=== PATIENT | female | born 1970 | race Caucasian/White ===

== ENCOUNTER 2016-05-19 09:32 | Emergency (ER) | payer SELFPAY ==
[~2016-05-19] VITALS: Ht 152.4 cm; Wt 46.1 kg
[~2016-05-19 09:32] MED LIST: DICL75 PO; ROBA750T3 PO
[2016-05-19 09:36] VITALS: BP 112/83; PULSE 92; RESP 16; TEMP 98.7; O2SAT 98
[2016-05-19 10:19] LABS: GLUCOSE,URINE NEG (NEG); KETONE, URINE NEG (NEG); NITRITE,URINE NEG (NEG); PH, URINE 5.5 (5.0-8.5)
[2016-05-19 10:32] LABS: BLOOD, URINE MOD (NEG); METHOD OF COLLECTION CLEAN CATCH; URINE COLOR YELLOW (YELLW/STRAW)
[2016-05-19 10:33] LABS: RBC, URINE 15-19 /hpf (0-3); SQUAMOUS EPITHELIAL CELL URINE 0-5 /hpf (0-5)
[2016-05-19 10:34] LABS: BACTERIA, URINE OCC /hpf; COMMENT (UR) CULTURE INDICATED; CULTURE IF INDICATED CULTURE INDICATED
[2016-05-19] MEDS ORDERED: CEPH-460 PO (11:30)
--- NOTE | 2016-05-19 11:31 | PD ---
HPI Chief Complaint: Reporting Consultant Problem/Complaint Time Seen by Provider: 09:55 Travel History International Travel<30 days: No Contact w/Intl Traveler<30days: No Traveled to known affect area: No History of Present Illness HPI 45-year-old female 10 para 7 arrives with concern that she might have an STD. She reports multiple sexual partners partners and non-barrier contraception intercourse. Evidently her most recent sexual partner was diagnosed with GC chlamydia. She's had no nausea vomiting or fever. Last menstruation was 1 month ago and she believes she is due soon. She reports a yellow and green discharge for about 5 weeks. PFSH Past Medical History Bipolar Disorder: Yes Cancer: Yes (CERVICAL CA 10 YRS AGO. CAUTERZED) Diminished Hearing: No Schizophrenia: Yes ?: Not LMP: 04/21/16 : 10 Para: 7 Miscarriage: 2 : 1 Tubal Ligation: Yes Past Surgical History Oral Surgery: Yes (ALL TEETH EXTRACTED 09/21) Social History Alcohol Use: Yes (USUALLY EVERYDAY ) Tobacco Use: Yes (1PPD ) Substance Use: Yes (CRACK, MARIJUANA ) Allergies-Medications (Allergen,Severity, Reaction): Coded Allergies: Aspirin (Verified Allergy, Severe, Hives, 05/19/16) Penicillin (Verified Allergy, Severe, Anaphylaxis, 05/19/16) Reported Meds & Prescriptions Reported Meds & Active Scripts Active Flagyl (Metronidazole) 500 Mg Tab 500 Mg PO BID 7 Days Keflex (Cephalexin) 500 Mg Cap 500 Mg PO Q12H 5 Days Review of Systems Except as stated in HPI: all other systems reviewed are Neg General / Constitutional: No: Fever Genitourinary: Positive: Discharge Physical Exam Narrative GENERAL: 45 yo F, NAD, WNWND PELVIC: VULVA NORMAL. MINIMAL CMT. MINIMAL YELLOW DC. SKIN: Warm and dry. HEAD: Atraumatic. Normocephalic. EYES: Pupils equal and round. No scleral icterus. No injection or drainage. ENT: No nasal bleeding or discharge. Mucous membranes pink and moist. NECK: Trachea midline. No JVD. CARDIOVASCULAR: Regular rate and rhythm. RESPIRATORY: No accessory muscle use. Clear to auscultation. Breath sounds equal bilaterally. GASTROINTESTINAL: Abdomen soft, non-tender, nondistended. Hepatic and splenic margins not palpable. MUSCULOSKELETAL: Extremities without clubbing, cyanosis, or edema. No obvious deformities. NEUROLOGICAL: Awake and alert. No obvious cranial nerve deficits. Motor grossly within normal limits. Five out of 5 muscle strength in the arms and legs. Normal speech. PSYCHIATRIC: Appropriate mood and affect; insight and judgment normal. Data Data Last Documented VS Vital Signs Date Time Temp Pulse Resp B/P Pulse Ox O2 Delivery O2 Flow Rate FiO2 05/19/16 09:36 98.7 92 16 112/83 98 VS REVIEWED Orders Gc And Chlamydia Pcr (05/19/16 10:02) Wet Prep Profile (05/19/16 10:02) Urinalysis - C+S If Indicated (05/19/16 10:02) Ed Urine Pregnancytest Poc (05/19/16 10:02) Urine Culture (05/19/16 10:10) Azithromycin Powd Pack (Zithromax Powd P (05/19/16 11:45) Ceftriaxone Inj (Rocephin Inj) (05/19/16 11:45) Lidocaine 1% Inj (50 Ml) (Xylocaine 1% I (05/19/16 11:45) Labs Laboratory Tests Test 05/19/16 05/19/16 10:10 11:20 Urine Collection Type CLEAN CATCH Urine Color YELLOW Urine Turbidity CLEAR Urine pH 5.5 Urine Specific [place] 1.024 Urine Protein TRACE mg/dL Urine Glucose (UA) NEG mg/dL Urine Ketones NEG mg/dL Urine Occult Blood MOD Urine Nitrite NEG Urine Bilirubin NEG Urine Leukocyte Esterase SMALL Urine RBC 15-19 /hpf Urine WBC 50-99 /hpf Urine WBC Clumps FEW Urine Squamous Epithelial 0-5 /hpf Cells Urine Bacteria OCC /hpf Microscopic Urinalysis Comment CULTURE INDICATED Urine Collection Time 10:10 Clue Cells (Wet Prep) NONE SEEN Vaginal Trichomonas (Wet Prep) NONE SEEN Vaginal Yeast (Wet Prep) NONE SEEN MDM Medical Decision Making Medical Screen Exam Complete: Yes Emergency Medical Condition: Yes Medical Record Reviewed: Yes Differential Diagnosis IUP, UTI, ectopic , ov torsion, appendicitis, TOA, cervicitis, BV, Trichomoniasis, ov cyst, hernia, mittelschmerz, pain from menstruation Narrative Course Pelvic exam had some discharge, no sign of PID however the negative wet prep is quite surprising. Concern for false negative and so we'll treat for BV. Empiric coverage for cervicitis provided. Patient also appears to have a UTI so we'll treat for that as well as Keflex. Return precautions discussed. Diagnosis Primary Impression: Cervicitis Additional Impressions: UTI (urinary tract infection) Qualified Code: N30.01 - Acute cystitis with hematuria Vaginal bleeding Referrals: Sling Operator as needed Additional Instructions: You have a choice when it comes to health care, and we are glad that you chose [facility]. Hopefully, we have met your expectations on today's visit. You are welcome to return to [facility] at any time, as we are committed to meeting the health care needs of our community. Med/Other Pt SpecificInfo: Prescription(s) given Scripts Metronidazole (Flagyl)500 Mg [id number] Mg PO BID 7 Days Ref 0 Prov:Munir Hickman MD 05/19/16 Cephalexin (Keflex)500 Mg [id number] Mg PO Q12H 5 Days Ref 0 Prov:Munir Hickman MD 05/19/16 Disposition: 01 DISCHARGE HOME Condition: Stable Munir Hickman MD May 19, 2016 11:30
[2016-05-19] MEDS ORDERED: METR-1 PO (11:38)
[2016-05-19] MEDS ORDERED: LIDOCAINE HCL 1% 50 ML VIAL IM ONE (11:45)
[2016-05-19] MEDS ORDERED: AZITHROMYCIN PWD FOR SUSP 1 GM PACKET PO ONE (11:45)
[2016-05-19] MEDS ORDERED: cefTRIAXone 250 MG VIAL IM ONE (11:45)
[2016-05-19 17:50] LABS: CHLAMYDIA PCR DETECTED (NOT DETECT); NEISSERIA PCR DETECTED (NOT DETECT)
== END 2016-05-19 12:09 | disposition home or self-care (01) ==
LOC: PHED 09:32
DX: N72 Inflammatory disease of cervix uteri (principal); N39.0 Urinary tract infection, site not specified; N93.9 Abnormal uterine and vaginal bleeding, unspecified; F17.210 Nicotine dependence, cigarettes, uncomplicated; F12.90 Cannabis use, unspecified, uncomplicated; F14.90 Cocaine use, unspecified, uncomplicated
CPT/HCPCS: 81001; 84703; 87086; 87210; 87491; 87591; 96372; 99283; J0696